=== PATIENT | female | born 1990 | race Caucasian/White ===

== ENCOUNTER 2017-07-01 15:12 | Emergency (ER) | payer MEDICAID ==
--- NOTE | 2017-07-01 16:02 | ER Document Report ---
ED Medical Screen (RME) - General Chief Complaint: Abdominal Pain Stated Complaint: ABDOMINAL PAIN Time Seen by Provider: 07/01/17 15:59 Notes: 26-year-old female patient a few days later., Lower abdominal pain for 3 days some nauseousness and dizziness. She reports she has headaches every morning for the past 1 year. Primary concern is about being late on her period. I have greeted and performed a rapid initial assessment of this patient. A comprehensive ED assessment and evaluation of the patient, analysis of test results and completion of the medical decision making process will be conducted by additional ED providers. TRAVEL OUTSIDE OF THE [place] IN LAST 30 DAYS: No - Related Data Allergies/Adverse Reactions: promethazine HCl [From Phenergan] Adverse Reaction (Verified 07/01/17 15:17) VOMITING Past Medical History - Social History Chew tobacco use (# tins/day): No Frequency of alcohol use: None Drug Abuse: None Renal/ Medical History: Denies: Hx Peritoneal Dialysis - Immunizations Hx Diphtheria, Pertussis, Tetanus Vaccination: No - >5 yrs Physical Exam - Vital signs Vitals: Temp Pulse Resp BP Pulse Ox 98.6 F 97 18 121/82 100 07/01/17 15:15 07/01/17 15:15 07/01/17 15:15 07/01/17 15:15 07/01/17 15:15 Course - Vital Signs Vital signs: Temp Pulse Resp BP Pulse Ox 98.6 F 97 18 121/82 100 07/01/17 15:15 07/01/17 15:15 07/01/17 15:15 07/01/17 15:15 07/01/17 15:15
[2017-07-01 16:34] LABS: ABSOLUTE BASOPHILS # (AUTO) 0.1 10^3/uL (0.0-0.2); ABSOLUTE EOSINOPHILS # (AUTO) 0.2 10^3/uL (0.0-0.6); ABSOLUTE LYMPHOCYTES (AUTO) 2.6 10^3/uL (0.5-4.7); ABSOLUTE MONOCYTES (AUTO) 0.4 10^3/uL (0.1-1.4); BASOPHILS % (AUTO) 0.6 % (0-2); EOSINOPHILS % (AUTO) 2.1 % (0-6); HEMATOCRIT 35.8 % (36.0-47.0); HEMOGLOBIN 12.3 g/dL (12.0-15.5); HGB HCT DIFFERENCE 1.1; LYMPHOCYTES % (AUTO) 31.4 % (13-45); MEAN CORPUSCULAR HEMOGLOBIN 31.4 pg (27.0-33.4); MEAN CORPUSCULAR HGB CONC 34.5 g/dL (32.0-36.0); MEAN CORPUSCULAR VOLUME 91 fl (80-97); MONOCYTES % (AUTO) 4.4 % (3-13); RED BLOOD COUNT 3.93 10^6/uL (3.72-5.28); RED CELL DISTRIBUTION WIDTH 13.2 % (11.5-14.0); SEGMENTED NEUTROPHILS % (AUTO) 61.5 % (42-78); WHITE BLOOD COUNT 8.2 10^3/uL (4.0-10.5)
[2017-07-01 16:41] LABS: APPEARANCE,URINE CLEAR; BILIRUBIN,URINE NEGATIVE (NEGATIVE); GLUCOSE, URINE NEGATIVE (NEGATIVE); KETONES,URINE NEGATIVE (NEGATIVE); LEUKOCYTE ESTERASE,URINE NEGATIVE (NEGATIVE); NITRITE,URINE NEGATIVE (NEGATIVE); PROTEIN,URINE NEGATIVE (NEGATIVE); URINE SPECIFIC GRAVITY 1.003; UROBILINOGEN,URINE NEGATIVE mg/dL (<2.0)
--- NOTE | 2017-07-01 16:59 | ER Document Report ---
ED General - General Chief Complaint: Abdominal Pain Stated Complaint: ABDOMINAL PAIN Time Seen by Provider: 07/01/17 15:59 Mode of Arrival: Ambulatory Information source: Patient Notes: 26-year-old female presents with bilateral pelvic pain of approximately 1 month duration. Patient notes that the pain makes her nauseous. Patient denies any fevers or chills TRAVEL OUTSIDE OF THE [place] IN LAST 30 DAYS: No - HPI Onset: Other Onset/Duration: Intermittent Quality of pain: Sharp Severity: Mild Pain Level: 1 Associated symptoms: Nausea, Other Exacerbated by: Denies Relieved by: Denies Similar symptoms previously: No Recently seen / treated by doctor: No - Related Data Allergies/Adverse Reactions: promethazine HCl [From Phenergan] Adverse Reaction (Verified 07/01/17 15:17) VOMITING Past Medical History - Social History Smoking Status: Current Every Day Smoker Cigarette use (# per day): Yes Chew tobacco use (# tins/day): No Smoking Education Provided: No Frequency of alcohol use: None Drug Abuse: None Family History: None Renal/ Medical History: Denies: Hx Peritoneal Dialysis - Immunizations Hx Diphtheria, Pertussis, Tetanus Vaccination: No - >5 yrs Review of Systems - Review of Systems Notes: REVIEW OF SYSTEMS: CONSTITUTIONAL : Denies fever, chills, or sweats. Denies recent illness. EENT: Denies eye, ear, throat, or mouth pain or symptoms. Denies nasal or sinus congestion or discharge. Denies throat, tongue, or mouth swelling or difficulty swallowing. CARDIOVASCULAR: Denies chest pain. Denies palpitations or racing or irregular heart beat. Denies ankle edema. RESPIRATORY: Denies cough, cold, or chest congestion. Denies shortness of breath, difficulty breathing, or wheezing. GASTROINTESTINAL: Admits to bilateral pelvic pain GENITOURINARY: Denies difficulty urinating, painful urination, burning, frequency, blood in urine, or discharge. FEMALE GENITOURINARY: Denies vaginal bleeding, heavy or abnormal periods, irregular periods. Denies vaginal discharge or odor. MUSCULOSKELETAL: Denies back or neck pain or stiffness. Denies joint pain or swelling. SKIN: Denies rash, lesions or sores. HEMATOLOGIC : Denies easy bruising or bleeding. LYMPHATIC: Denies swollen, enlarged glands. NEUROLOGICAL: Denies confusion or altered mental status. Denies passing out or loss of consciousness. Denies dizziness or lightheadedness. Denies headache. Denies weakness or paralysis or loss of use of either side. Denies problems with gait or speech. Denies sensory loss, numbness, or tingling. Denies seizures. PSYCHIATRIC: Denies anxiety or stress. Denies depression, suicidal ideation, or homicidal ideation. ALL OTHER SYSTEMS REVIEWED AND NEGATIVE. PHYSICAL EXAMINATION: GENERAL: Well-appearing, well-nourished and in no acute distress. HEAD: Atraumatic, normocephalic. EYES: Pupils equal round and reactive to light, extraocular movements intact, conjunctiva are normal. ENT: Nares patent, oropharynx clear without exudates. Moist mucous membranes. NECK: Normal range of motion, supple without lymphadenopathy LUNGS: Breath sounds clear to auscultation bilaterally and equal. No wheezes rales or rhonchi. HEART: Regular rate and rhythm without murmurs ABDOMEN: Soft, nontender, nondistended abdomen. No guarding, no rebound. No masses appreciated. Female : deferred Musculoskeletal: Normal range of motion, no pitting or edema. No cyanosis. NEUROLOGICAL: Cranial nerves grossly intact. Normal speech, normal gait. Normal sensory, motor exams PSYCH: Normal mood, normal affect. SKIN: Warm, Dry, normal turgor, no rashes or lesions noted. Dictation was performed using [email or web address] voice recognition software Physical Exam - Vital signs Vitals: Temp Pulse Resp BP Pulse Ox 98.6 F 97 18 121/82 100 07/01/17 15:15 07/01/17 15:15 07/01/17 15:15 07/01/17 15:15 07/01/17 15:15 Course - Re-evaluation Re-evalutation: 07/01/17 16:58 pt given information for as requested. Patient otherwise appears quite benign 07/01/17 17:04 07/01/17 18:54 Ultrasound notes twins, patient is quite tearful from this she still wishes to continue with having the . Otherwise she looks well is in no distress has no ectopic After performing a Medical Screening Examination, I estimate there is LOW risk for ACUTE APPENDICITIS, BOWEL OBSTRUCTION, ACUTE CHOLECYSTITIS, PERFORATED DIVERTICULITIS, INCARCERATED HERNIA, PANCREATITIS, PELVIC INFLAMMATORY DISEASE, PERFORATED ULCER, ECTOPIC , or TUBO-OVARIAN ABSCESS, thus I consider the discharge disposition reasonable. Also, there is no evidence or peritonitis , sepsis, or toxicity. I have reevaluated this patient multiple times and no significant life threatening changes are noted. The patient and I have discussed the diagnosis and risks, and we agree with discharging home with close follow-up with the understanding that symptoms and presentations can change. We also discussed returning to the Emergency Department immediately if new or worsening symptoms occur. We have discussed the symptoms which are most concerning (e.g., bloody stool, fever, changing or worsening pain, vomiting) that necessitate immediate return. - Vital Signs Vital signs: Temp Pulse Resp BP Pulse Ox 98.6 F 97 18 121/82 100 07/01/17 15:15 07/01/17 15:15 07/01/17 15:15 07/01/17 15:15 07/01/17 15:15 - Laboratory Result Diagrams: 07/01/17 16:05 07/01/17 16:05 Laboratory results interpreted by me: 07/01/17 07/01/17 07/01/17 16:05 16:05 16:05 Hct 35.8 L Carbon Dioxide 21 L Alkaline Phosphatase 33 L Serum HCG, Qual POSITIVE H Beta HCG, Quant 15182.00 H - Diagnostic Test Radiology reviewed: Image reviewed, Reports reviewed - Report given to patient Discharge - Discharge Clinical Impression: Abdominal pain affecting Twin Qualifiers: Multiple gestation type: unspecified Trimester: first trimester Qualified Code( s): O30.001 - Twin , unspecified number of placenta and unspecified number of amniotic sacs, first trimester Condition: Stable Disposition: HOME, SELF-CARE Additional Instructions: Please follow-up with the care plan provided to your return immediately for any other concerns Referrals: AUGUSTA GAILNDO MD [Primary Care Provider] - Follow up tomorrow
[2017-07-01 18:20] LABS: ALANINE AMINOTRANSFERASE 20 U/L (9-52); ALBUMIN 4.1 g/dL (3.5-5.0); ALKALINE PHOSPHATASE 33 U/L (38-126); ANION GAP 12 (5-19); ASPARTATE AMINO TRANSFERASE 17 U/L (14-36); BILIRUBIN,DIRECT 0.4 mg/dL (0.0-0.4); BILIRUBIN,TOTAL 0.6 mg/dL (0.2-1.3); BLOOD UREA NITROGEN 9 mg/dL (7-20); CALCIUM 9.3 mg/dL (8.4-10.2); CARBON DIOXIDE 21 mmol/L (22-30); CHLORIDE 105 mmol/L (98-107); CREATININE RESULT 0.57 mg/dL (0.52-1.25); GLUCOSE 81 mg/dL (75-110); SODIUM 137.7 mmol/L (137-145); TOTAL PROTEIN 6.6 g/dL (6.3-8.2)
--- NOTE | 2017-07-01 18:48 | RADIOLOGY REPORT (SQ) ---
EXAM DESCRIPTION: U/S OB TRANSVAGINAL W/O DOP COMPLETED DATE/TIME: 07/01/2017 6:34 pm REASON FOR STUDY: + preg, pelvic pain COMPARISON: None. TECHNIQUE: Transvaginal static and realtime grayscale images acquired of the pelvis. Additional [place] cted spectral and color Doppler images recorded. All images stored on PACs. [id number] LIMITATIONS: None. FINDINGS: There are 2 gestational sacs within the endometrial canal. The size of sac 1 suggests a g estation of 6 weeks 2 days with estimated date of delivery of 02/22/2018. Sac 2 contains a pole and heart motion is noted. The rate is 101. Estimated gestational age is 5 weeks 6 days with estimated date of delivery of 02/25/2018. A yolk sac is present. UTERUS: No masses. No anomalies. CERVICAL LENGTH: 3 cm Closed. RIGHT ADNEXA: 3.8 x 3.6 x 5.5 cm. 2 cystic areas are present. The larger measures 2.6 x 2.8 x 2.5 c m and the smaller 1 measures 2.5 x 2.1 x 1.2 cm. No adnexal free fluid. No adnexal masses. LEFT ADNEXA: Normal ovary 3.4 x 1.5 x 2 2 cm. No adnexal free fluid. No adnexal masses. FREE FLUID: None. OTHER: No other significant finding. IMPRESSION: There are what appear to be 2 gestational sacs within uterus as described. A pole , yolk sac, and heart beat are seen in 1 of them suggesting a gestation of 5 weeks 6 days with an est imated date of delivery of 02/25/2018. Follow-up as clinically indicated. Trimester of : First - 0 to 13 weeks. TECHNICAL DOCUMENTATION: JOB ID: [id number] [employer]- All Rights Reserved
[2017-07-01 19:06] VITALS: BP 110/72
== END 2017-07-01 19:08 | disposition home or self-care (01) ==
LOC: ER 15:12
DX: O26.891 Other specified pregnancy related conditions, first trimester (principal); R10.2 Pelvic and perineal pain; R11.0 Nausea; O30.001 Twin pregnancy, unspecified number of placenta and unspecified number of amniotic sacs, first trimester; O99.331 Smoking (tobacco) complicating pregnancy, first trimester; F17.210 Nicotine dependence, cigarettes, uncomplicated; Z3A.00 Weeks of gestation of pregnancy not specified
CPT/HCPCS: 36415; 76817; 80053; 81001; 84702; 84703; 85025; 99284

== ENCOUNTER → 2017-09-07 | Outpatient (CLI) | payer SELFPAY ==
--- NOTE | 2017-09-07 16:57 | RADIOLOGY REPORT (SQ) ---
EXAM DESCRIPTION: U/S OB 14+ TRNABD 1GES W/O DOP; U/S [id number] + EACH ADDIT GEST COMPLETED DATE/TIME: 09/07/2017 4:42 pm REASON FOR STUDY: ENCOUNTER FOR SUPERVISION OF OTHER NORMAL , SECOND TRIMESTER Z34.82 ENCO UNTER FOR SUPRVSN OF NORMAL , SECOND TRI COMPARISON: 07/01/2017. TECHNIQUE: Static and Dynamic grayscale imaging performed of gravid uterus using transabdominal appr oach. Additional selected color Doppler and spectral images recorded. All stored on PACS. LIMITATIONS: None. FINDINGS: TWIN A: EGA: 15 week 6 day. ISAÍAS: 02/23/2018. RACHEAL: Adequate amount. PLACENTA: Posterior. PRESENTATION: Variable. ANATOMY: HEART RATE: 169 beats per minute. FOUR CHAMBER HEART: Visualized. THREE VESSEL CORD: Yes. CORD INSERTION: Visualized. KIDNEYS AND BLADDER: Visualized. Appear normal. STOMACH: Visualized. Appears normal. SPINE: Normal as visualized. BRAIN AND LATERAL VENTRICLES: Visualized. Appear normal. OTHER: No other significant finding. TWIN B: EGA: 15 week 6 day. ISAÍAS: 02/23/2018. RACHEAL: Adequate amount. PLACENTA: Anterior. PRESENTATION: Variable. ANATOMY: HEART RATE: 150 beats per minute. FOUR CHAMBER HEART: Visualized. THREE VESSEL CORD: Yes. CORD INSERTION: Visualized. KIDNEYS AND BLADDER: Mild prominence of the right and left renal pelvis. STOMACH: Visualized. Appears normal. SPINE: Normal as visualized. BRAIN AND LATERAL VENTRICLES: Visualized. Appear normal. OTHER: No other significant finding. MATERNAL ADNEXA: Left ovary not visualized. 1.3 cm cyst in the right ovary. CERVICAL LENGTH: Not adequately visualized. OTHER: No other significant finding. IMPRESSION: LIVING TWIN INTRAUTERINE . ESTIMATED GESTATIONAL AGE 15 WEEK 6 DAY. MILD PROMINENCE OF THE RIGHT AND LEFT RENAL PELVIS OF TWIN B. RECOMMEND CONTINUED MONITORING OF THIS FINDING. Trimester of : Second trimester - 13 weeks 1 day to 27 weeks 6 days. TECHNICAL DOCUMENTATION: JOB ID: [id number] [employer]- All Rights Reserved
--- NOTE | 2017-09-07 16:57 | RADIOLOGY REPORT (SQ) ---
EXAM DESCRIPTION: U/S OB 14+ TRNABD 1GES W/O DOP; U/S [id number] + EACH ADDIT GEST COMPLETED DATE/TIME: 09/07/2017 4:42 pm REASON FOR STUDY: ENCOUNTER FOR SUPERVISION OF OTHER NORMAL , SECOND TRIMESTER Z34.82 ENCO UNTER FOR SUPRVSN OF NORMAL , SECOND TRI COMPARISON: 07/01/2017. TECHNIQUE: Static and Dynamic grayscale imaging performed of gravid uterus using transabdominal appr oach. Additional selected color Doppler and spectral images recorded. All stored on PACS. LIMITATIONS: None. FINDINGS: TWIN A: EGA: 15 week 6 day. ISAÍAS: 02/23/2018. RACHEAL: Adequate amount. PLACENTA: Posterior. PRESENTATION: Variable. ANATOMY: HEART RATE: 169 beats per minute. FOUR CHAMBER HEART: Visualized. THREE VESSEL CORD: Yes. CORD INSERTION: Visualized. KIDNEYS AND BLADDER: Visualized. Appear normal. STOMACH: Visualized. Appears normal. SPINE: Normal as visualized. BRAIN AND LATERAL VENTRICLES: Visualized. Appear normal. OTHER: No other significant finding. TWIN B: EGA: 15 week 6 day. ISAÍAS: 02/23/2018. RACHEAL: Adequate amount. PLACENTA: Anterior. PRESENTATION: Variable. ANATOMY: HEART RATE: 150 beats per minute. FOUR CHAMBER HEART: Visualized. THREE VESSEL CORD: Yes. CORD INSERTION: Visualized. KIDNEYS AND BLADDER: Mild prominence of the right and left renal pelvis. STOMACH: Visualized. Appears normal. SPINE: Normal as visualized. BRAIN AND LATERAL VENTRICLES: Visualized. Appear normal. OTHER: No other significant finding. MATERNAL ADNEXA: Left ovary not visualized. 1.3 cm cyst in the right ovary. CERVICAL LENGTH: Not adequately visualized. OTHER: No other significant finding. IMPRESSION: LIVING TWIN INTRAUTERINE . ESTIMATED GESTATIONAL AGE 15 WEEK 6 DAY. MILD PROMINENCE OF THE RIGHT AND LEFT RENAL PELVIS OF TWIN B. RECOMMEND CONTINUED MONITORING OF THIS FINDING. Trimester of : Second trimester - 13 weeks 1 day to 27 weeks 6 days. TECHNICAL DOCUMENTATION: JOB ID: [id number] [employer]- All Rights Reserved
== END ==
LOC: RAD 14:55
PROVIDERS: ATTEND Nurse Practitioner Women's Health
DX: Z34.82 Encounter for supervision of other normal pregnancy, second trimester (principal)
CPT/HCPCS: 76805; 76810

== ENCOUNTER 2018-01-11 16:58 | Outpatient (CLI) | payer MEDICAID ==
--- NOTE | 2018-01-11 17:45 | Non Stress Test Report ---
Non Stress Test Datetime Report Generated by CPN: 01/11/2018 17:45 DEMOGRAPHIC EGA NST: 33.5 INDICATION Indication for Study: Ordered by Provider Indication for Study (NST) Other: repeat NST from the office MONITORING Monitor Explained: Monitor Explained; Test Explained; Patient Verbalized Understanding Time on Monitor: 01/11/2018 17:08 Time off Monitor: 01/11/2018 17:44 NST Duration: 36 NST INTERVENTIONS NST Interventions: None BABY A: [id number] BABY A Movement : Present Accelerations : 15X15 Decelerations : Variable Variability : Moderate 6-25bpm NST Review: Meets Criteria for Reactive NST NST Review and Verified By : Hayley Camp RNC NST Results: Reactive BABY B Movement: Present FHR Baseline: 140 Accelerations: 15X15 Decelerations: Variable Variability: Moderate 6-25bpm NST Review: Meets Criteria for Reactive NST NST Reviewed And Verified By: Hayley Camp RNC NST Results: Reactive NST REPORT Report Trigger: Send Report
== END 2018-01-11 17:47 | disposition home or self-care (01) ==
LOC: LC 16:58
PROVIDERS: ATTEND Obstetrics & Gynecology Gynecology
PROC: 4A1HXCZ Monitoring of Products of Conception, Cardiac Rate, External Approach (ICD-10-PCS; principal; 2018-01-11)
DX: O30.003 Twin pregnancy, unspecified number of placenta and unspecified number of amniotic sacs, third trimester (principal); O36.8330 Maternal care for abnormalities of the fetal heart rate or rhythm, third trimester, not applicable or unspecified; Z3A.33 33 weeks gestation of pregnancy
CPT/HCPCS: 59025

== ENCOUNTER 2018-01-25 06:17 | Inpatient (IN) | payer MEDICAID ==
[2018-01-25] MEDS ORDERED: PENICILLIN G-K 5 MILLION UNIT VIAL ONE ×2 (07:19→10:52)
[2018-01-25] MEDS ORDERED: OXYTOCIN/NORMAL SALINE 20 UNIT/1,000 ML RTUINJ ONE (07:19)
[2018-01-25 07:23] LABS: ABSOLUTE EOSINOPHILS # (AUTO) 0.4 10^3/uL (0.0-0.6); ABSOLUTE LYMPHOCYTES (AUTO) 2.2 10^3/uL (0.5-4.7); ABSOLUTE MONOCYTES (AUTO) 0.6 10^3/uL (0.1-1.4); ABSOLUTE NEUT (AUTO) 5.8 10^3/uL (1.7-8.2); BASOPHILS % (AUTO) 0.3 % (0-2); HEMOGLOBIN 10.7 g/dL (12.0-15.5); MEAN CORPUSCULAR HGB CONC 34.4 g/dL (32.0-36.0); MEAN CORPUSCULAR VOLUME 87 fl (80-97); MONOCYTES % (AUTO) 6.3 % (3-13); PLATELET COUNT 266 10^3/uL (150-450); RED BLOOD COUNT 3.56 10^6/uL (3.72-5.28); RED CELL DISTRIBUTION WIDTH 12.7 % (11.5-14.0); SEGMENTED NEUTROPHILS % (AUTO) 64.4 % (42-78); TOTAL CELLS COUNTED % (AUTO) 100 %
[2018-01-25] MEDS ORDERED: RINGERS SOLUTION,LACTATED 1,000 ML IV PRN (07:32)
[2018-01-25] MEDS ORDERED: RINGERS SOLUTION,LACTATED 300 ML IV ONE (07:32)
[2018-01-25] MEDS ORDERED: OXYTOCIN/NORMAL SALINE 20 UNIT/1,000 ML RTUINJ IV PRN ×2 (07:32→13:26)
[2018-01-25 08:26] LABS: APPEARANCE,URINE SLIGHTLY-CLOUDY; BILIRUBIN,URINE NEGATIVE (NEGATIVE); COLOR,URINE YELLOW; GLUCOSE, URINE NEGATIVE (NEGATIVE); KETONES,URINE NEGATIVE (NEGATIVE); LEUKOCYTE ESTERASE,URINE SMALL (NEGATIVE); NITRITE,URINE NEGATIVE (NEGATIVE); PROTEIN,URINE NEGATIVE (NEGATIVE); URINE SPECIFIC GRAVITY 1.011; UROBILINOGEN,URINE NEGATIVE mg/dL (<2.0)
[2018-01-25 08:43] LABS: URINE AMPHETAMINES SCREEN NEGATIVE; URINE BARBITURATES SCREEN NEGATIVE; URINE BENZODIAZEPINES SCREEN NEGATIVE; URINE COCAINE SCREEN NEGATIVE; URINE MARIJUANA (THC) SCREEN NEGATIVE; URINE METHADONE SCREEN NEGATIVE; URINE PHENCYCLIDINE SCREEN NEGATIVE
--- NOTE | 2018-01-25 08:56 | Admission Physical ---
Datetime Report Generated by CPN: 01/25/2018 08:55 CURRENT ADMISSION Hx Assessment: The History has been Reviewed and is Current Chief Complaint: Scheduled Induction of Labor Indication for Induction- Other: Twins, maternal isoimmunization Admit Impression : , Intrauterine ; No Active Labor; Intact Membranes; Induction of Labor Admit Plan: Admit to Unit; Initiate Labor Induction Protocol ALLERGIES Medication Allergies: No Medication Allergies: No Known Allergies (01/25/2018) Latex: No Latex Allergies OBSTETRICAL HISTORY EDC: 02/23/2018 00:00 : 4 Para: 3 Term: 1 : 2 SAB: 0 IAB: 0 Ectopic: 0 Livin Cesareans: 0 VBACs: 0 Multiple Births: 0 Gestational Diabetes: No Rh Sensitization: No Incompetent Cervix: No VANESSA: No Infertility: No ART Treatment: No Uterine Anomaly: No IUGR: No Hx Previous C/S: No Macrosomia: No Hx Loss/Stillborn: No PIH: No Hx : No Placenta Previa/Abruption: No Depression/PP Depression: Yes PTL/PROM: No Post Hemorrhage: No Current Procedures: Ultrasound; NST Obstetrical History Comments: 01/2010 36 weeks baby boy 6lbs 5oz PROM 04/2012 36 weeks baby girl 6lbs 15oz IOL for RH factor 04/2016 37 weeks baby boy 6lbs 5oz G4- current with dichorionic diamniotic twins SEE RECORDS Alcohol: No Marijuana : No Cocaine: No Other Illicit Drugs: No Cigarettes: Former Smoker. [id number] Cigarette Comments: Quit in November MEDICAL HISTORY Diabetes: No Blood Transfusion: No Pulmonary Disease (Asthma, TB): No Breast Disease: No Hypertension: No Tobacco Sprayer Surgery: No Heart Disease: No Hosp/Surgery: Yes Autoimmune Disorder: No Anesthetic Complications: No Kidney Disease: No Abnormal Pap Smear: No Neuro/Epilepsy: No Psychiatric Disorders: No Other Medical Diseases: No Hepatitis/Liver Disease: No Significant Family History: No Varicosities/Phlebitis: No Trauma/Violence : No Thyroid Dysfunction: No Medical History Comments: Childbirth; PPD-no meds; INFECTIOUS HISTORY Gonorrhea: No Genital Herpes: No Chlamydia: Yes Tuberculosis: No Syphilis: No Hepatitis: No HIV/AIDS Exposure: No Rash or Viral Illness: No HPV: No Infectious History Comments: hx of chlamydia and , TERRY??? PHYSICAL EXAM General: Normal HEENT: Normal Neurologic: Normal Thyroid: Deferred Heart: Normal Lungs: Normal Breast: Normal Back: Normal Abdomen: Normal Genitourinary Exam: Normal Extremities: Normal DTRs: Normal Pelvic Type: Adequate Vital Signs: Reviewed VAGINAL EXAM Dilatation: 3 Effacement: 50 Station: -3 Contraction Comments: rare MEMBRANES Membranes: Intact FETUS A EGA: 35.6 Monitoring: External US FHR- Baseline: 140 Variability: Moderate 6-25bpm Accelerations: 15X15 Decelerations: None FHR Category: Category I Presentation: Vertex Admit Comment: MFM recommended iol @ 36 w d/t maternal isoimmunization, twins, di-di efw: 5-13, and 5-3 vertex/vertex gbs unknown, pcn pitocin PLANS FOR LABOR AND DELIVERY Labor and Delivery: None Pain Management: Epidural Feeding Preference: Both Benefit of Breast Feed Discussed: Yes Circumcision: No INFORMED CONSENT Assignment: Patricia Jackson MD Signature: with User ID: [email or web address] : with User ID: [email or web address]
[2018-01-25] MEDS ORDERED: NORMAL SALINE 250 ML IV PRN (08:58)
[2018-01-25] MEDS ORDERED: MAG HYDROX/AL HYDROX/SIMETH SUSP 30 ML UDCUP ONE ×2 (09:00→09:07)
[2018-01-25] MEDS ORDERED: MAG HYDROX/AL HYDROX/SIMETH SUSP 30 ML UDCUP PO ONE (09:04)
[2018-01-25] MEDS ORDERED: EPHEDRINE SULFATE INJ 50 MG/1 ML AMPULE ONE (10:30)
--- NOTE | 2018-01-25 10:30 | L&D Progress Notes ---
PROGRESS NOTES Datetime Report Generated by CPN: 01/25/2018 10:30 PROGRESS NOTE Impression: Normal Progression of Labor Procedures: Artificial ROM; Scalp Electrode; Sterile Vag Exam Plan: Continue Present Management; Induction Informed Consent Obtained: Vaginal Delivery; Induction of Labor; Risks, Benefits and Alternatives Discussed Vital Signs : Reviewed; Within Normal Limits Comment: Unable to trace Baby A. IOL due to Increased antibody titer. Recommended by Dr. Salinas with MFM. Since unable to trace baby A - AROM performed and FSE placed. CLear fluid noted. Pt desires epidural. Reviewed again plan to deliver in OR. CAT I for baby A and B now with FSE placed. VAGINAL EXAM Dilatation: 5 Dilatation: 3 Effacement: 75 Effacement: 50 Station: -1 Station: -3 Contractions: q 2-3 Contractions: rare MEMBRANES Membranes: Ruptured Membranes: Intact Amniotic Fluid Color: Clear FETUS A FHR - Baseline: 130 Monitoring: External US Variability: Moderate 6-25bpm Accelerations: 15X15 Decelerations: None FHR Category: Category I Estimated Weight (gm): 2644 Presentation: Vertex FETUS B FHR - Baseline: 130 Monitoring: External US Variability: Moderate 6-25bpm Accelerations: 15X15 Decelerations: None FHR Category: Category I Estimated Weight (gm): 2356 Presentation: Vertex SIGNATURE SIGNATURE: [id number];14,[id number];13,[id number] SIGNATURE: [id number];14,[id number] SIGNATURE: [id number] Signature: with User ID: [email or web address]
[2018-01-25] MEDS ORDERED: BUPIVACAINE HCL 0.25 % INJ/PF (2.5 MG/1 ML) 30 ML VIAL ONE (10:31)
[2018-01-25] MEDS ORDERED: FENTANYL/BUPIVACAINE/NS/PF 200 MCG/100 ML RTUINJ EPI ONE (10:31)
[2018-01-25] MEDS ORDERED: MISOPROSTOL 0.2 MG TABLET ONE (10:31)
[2018-01-25 11:08] LABS: CHLAM PCR NOT DETECTED (NOT DETECT); GON PCR NOT DETECTED (NOT DETECT)
[2018-01-25] MEDS ORDERED: DIPH/PERTUSS(ACELL)/TETANUS VAC/PF 0.5 ML SYR (>=10YO) IM PRN (13:26)
[2018-01-25] MEDS ORDERED: PSEUDOEPHEDRINE HCL 30 MG TABLET PO PRN (13:26)
[2018-01-25] MEDS ORDERED: BENZOCAINE/MENTHOL AEROSOL SPRAY 56 ML TOP PRN (13:26)
[2018-01-25] MEDS ORDERED: NA PHOS,M-B/NA PHOS,DI-BA (ADULT) 133 ML ENEMA PR PRN (13:26)
[2018-01-25] MEDS ORDERED: PROMETHAZINE HCL 25 MG SUPP.RECT PR PRN (13:26)
[2018-01-25] MEDS ORDERED: MAGNESIUM HYDROXIDE SUSP 30 ML UDCUP PO PRN (13:26)
[2018-01-25] MEDS ORDERED: DIPHENHYDRAMINE HCL 25 MG CAPSULE PO PRN (13:26)
[2018-01-25] MEDS ORDERED: ACETAMINOPHEN WITH CODEINE #3 TABLET PO PRN (13:26)
[2018-01-25] MEDS ORDERED: GLYCERIN/WITCH HAZEL LEAF 1 EACH MED..PAD TP PRN (13:26)
[2018-01-25] MEDS ORDERED: DIBUCAINE 1% OINTMENT 28 GM TP PRN (13:26)
[2018-01-25] MEDS ORDERED: PROMETHAZINE HCL 25 MG TABLET PO PRN (13:26)
[2018-01-25] MEDS ORDERED: PROMETHAZINE HCL INJ 25 MG/1 ML VIAL IV PRN (13:26)
[2018-01-25] MEDS ORDERED: MEASLES,MUMPS&RUBELLA VACC/PF 0.5 ML VIAL SUBCUT PRN (13:26)
[2018-01-25] MEDS ORDERED: ACETAMINOPHEN 325 MG TABLET PO PRN (13:26)
[2018-01-25] MEDS ORDERED: MISOPROSTOL 0.2 MG TABLET PR ONE (13:30)
[2018-01-25] MEDS: FERROUS SULFATE 325 MG TABLET PO SCH (17:21)
[2018-01-25] MEDS: ACETAMINOPHEN WITH CODEINE #3 TABLET PO PRN (17:22)
[2018-01-25] MEDS: DOCUSATE SODIUM 100 MG CAPSULE PO SCH (17:23)
--- NOTE | 2018-01-25 18:38 | Delivery Summary ---
Del Sum A-C Datetime Report Generated by CPN: 01/25/2018 18:38 DELIVERY PERSONNEL DELIVERY PERSONNEL: [id number] Delivery Doctor:: Patricia Jackson MD Labor and Delivery Nurse:: RICKY Mohan Labor and Delivery Nurse:: RICKY Rogers Nursery Nurse:: Soniya Redding RN Nursery Nurse:: Sue Johnson RN Window Shade Installer/UNIT MANAGER: Elizabeth Neri, ST Window Shade Installer/UNIT MANAGER: Mendy Sheppard, POCKET BUILDER MATERNAL INFORMATION Delivery Anesthesia: Epidural Meds After Delivery Comment: Pitocin 20 Units/1000 ml NS bolus, 1000 mcg VT Estimated Blood Loss (ml): 600 Maternal Complications: Other Provider Comments: Called due to patient feeling increased pressure to push. DC/DA TIUP vertex/vertex with baby A larger than baby B. Reviewed risks of vaginal delivery of TIUP with patient prior to IOL scheduled. Pt is comfortable with epidural. Cvx noted to be c/c/+3. Anesthesia and NICU team notified of imminent delivery of twins and that we were heading to the Operating room for delivery. Upon arrival to the Operating Room patient was moved to the OR table and positioned and placed in stirrups. Cervix re-evaluated and patient feeling need to push. Baby A delivered expeditiously at 1224 with only 2 pushes. Loose nuchal cord noted. Shoulders and body delivered without difficulty. Cord doubly clamped and cut and infant to maternal Abdomen due to NICU not present. NICU and ANesthesia notified again. Apgars for Baby A 7/9. One clamp placed on Baby As cord and cord blood obtained. Baby B was assessed and felt to be cephalic but malpositioned and not well applied to cervix therefore head positioned properly for delivery and AROM performed for baby B at 1226. Repeat assesment of Baby B noted to be now compound presentaiton with head and one (left) foot. On palpation noted loop of baby B cord in vagina and unable to reduce cord back into uterus. Patient asked to push after foot was pushed back into uterus and poor descent. At this time NICU and Anesthesia notified again. Baby B's head was easily disengaged and then delivered from breech presentation due to need for expeditious delivery secondary to cord prolapse. Patient only pushed 2-3 times and easily delivered baby B from breech presentation at 1231. Baby B was initially with poor tone and no cry and poor color and cord was doubly clamped and cut and infant to NICU and was quickly recussitated. No perineal lacerations. Good uterine tone. FF at U and good hemostasis. Cytotec 1000mcg given per rectum. Babys father taken to NICU to see Baby B and Baby B crying and doing well. Baby B Apgars 1/9 (PIERCE AND SHAVE PRESS OPERATOR not present for assesment). Baby B capillary gases wnl. pH 7.15 BE -8 LABOR SUMMARY EDC: 02/23/2018 00:00 No. Babies in Womb: 2 Attempted: No Labor Anesthesia: Epidural LABOR INFORMATION Reason for Induction: Indicated by Testing Reason for Induction- Other: MFM recommended delivery Onset of Labor: 01/25/2018 10:01 Complete Dilatation: 01/25/2018 12:10 Other Ripening Agents: NA Oxytocin: Induction Group B Beta Strep: unknown Antibiotics # of Doses: 2 Antibiotics Time of Last Dose: Name of Antibiotic Given: PCN Steroids Given: None Reason Steroids Not Administered: Not Applicable MEMBRANES Membranes Rupture Method: Artificial Rupture of Membranes: 01/25/2018 10:01 Length of Rupture (hr): 2.38 Amniotic Fluid Color: Clear Amniotic Fluid Amount: Small STAGES OF LABOR Stage 1 hr: 2 Stage 1 min: 9 Stage 2 hr: 0 Stage 2 min: 14 Stage 3 hr: 0 Stage 3 min: 12 Total Time in Labor hr: 2 Total Time in Labor min: 35 VAGINAL DELIVERY Episiotomy: None Laceration #1: None Laceration Extension #1: N/A Laceration Repair: Not Applicable Sponge Count Correct: Yes Sharps Count Correct: Yes CSECTION DELIVERY Primary Indication: N/A Secondary Indication: N/A CSection Incidence: N/A Labor: N/A Elective: N/A CSection Incision: N/A BABY A INFORMATION Delivery Date/Time: 01/25/2018 12:24 Method of Delivery: Vaginal Born in Route : No : N/A Forceps: N/A Vacuum Extraction: N/A Shoulder Dystocia : No PRESENTATION/POSITION BABY A Presentation: Cephalic Cephalic Presentation: Vertex Vertex Position: Right Occipital Anterior Breech Presentation: N/A PLACENTA INFORMATION BABY A Placenta Delivery Time : 01/25/2018 12:36 Placenta Method of Delivery: Spontaneous Placenta Status: Delivered SCORES BABY A Heart Rate 1 min: >100 bpm Resp Effort 1 min: Good Cry Reflex Irritability 1 min: Cough or Sneeze or Pulls Away Muscle Tone 1 min: Some Flexion of Extremities Color 1 min: Blue/Pale Resuscitation Effort 1 min: Tactile Stimulation SCORE 1 MIN: 7 Heart Rate 5 min: >100 bpm Resp Effort 5 min: Good Cry Reflex Irritability 5 min: Cough or Sneeze or Pulls Away Muscle Tone 5 min: Active Motion Color 5 min: Body [place], Extremities Blue Resuscitation Effort 5 min: N/A SCORE 5 MIN: 9 Resuscitation Effort 10 min: N/A INFORMATION BABY A Gestational Age at Delivery: 35.6 Gestational Status: Late - 34- 36.6 Weeks Outcome : Liveborn Condition : Stable Sex: Male IDENTIFICATION BABY A Infant Verification Date/Time: 01/25/2018 13:51 ID Band Number: [id number] Mother's Name Verified: Yes RN Verifying : A Mcgee RN M Silver RN WEIGHT/LENGTH BABY A Birthweight (gm): 2670 Infant Weight (lb): 5 Weight (oz): 14 Length (in): 19.25 Length (cm): 48.90 CORD INFORMATION BABY A No. Cord Vessels: 3 Nuchal Cord : Around Neck x1, Loose Cord Blood Taken: Yes-For Eval (Mom's Blood Type - or O+) Suction: Mouth; Nose ASSESSMENT BABY A Infant Complications: None Physical Findings at Delivery: Within Normal Limits Respirations: Appears Normal Skin to Skin: Yes Sap Portal Architect/ALS Called : Yes Infant Care By: D Bellavance RNC Transferred To: NICU BABY B INFORMATION Infant Delivery Date/Time: 01/25/2018 12:31 Method of Delivery : Vaginal Born in Route : No : N/A Forceps : N/A Vacuum Extraction: N/A Shoulder Dystocia : No SHOULDER DYSTOCIA BABY B Infant Delivery Date/Time: 01/25/2018 12:31 PRESENTATION/POSITION BABY B Presentation : Breech Cephalic Position : N/A Breech Position: Double Footling ROM/PLACENTA INFO BABY B Rupture of Membranes: 01/25/2018 12:26 Length of Rupture (hr): 0.08 Placenta Delivery Time : 01/25/2018 12:36 Placenta Method of Delivery: Spontaneous Placental Status : Delivered SCORES BABY B Heart Rate 1 min: Slow, Below 100 bpm Resp Effort 1 min: Absent Reflex Irritability 1 min: No Response Muscle Tone 1 min: Flaccid Color 1 min: Blue/Pale Resuscitation Effort 1 min: Tactile Stimulation; Oxygen; PPV/NCPAP SCORE 1 MIN: 1 Heart Rate 5 min: >100 bpm Resp Effort 5 min: Good Cry Reflex Irritability 5 min: Cough or Sneeze or Pulls Away Muscle Tone 5 min: Active Motion Color 5 min: Body [place], Extremities Blue Resuscitation Effort 5 min: Oxygen SCORE 5 MIN: 9 INFANT INFORMATION BABY B Gestational Age at Delivery: 35.6 Gestational Status : Late - 34- 36.6 Weeks Infant Outcome : Liveborn Infant Condition : Stable Infant Sex : Male IDENTIFICATION BABY B Infant Verification Date/Time: 01/25/2018 13:52 ID Band Number : [id number] Mother's Name Verified: Yes RN Verifying Infant: Georgia Mcgee ERAN Miriam Silver RN WEIGHT/LENGTH BABY B Birthweight (gm): 2460 Weight (lb) : 5 Infant Weight (oz): 7 Infant Length (in): 19.25 Length (cm): 48.90 CORD INFORMATION BABY B No. Cord Vessels : 3 Nuchal Cord : N/A Cord Blood Taken : Yes-For Eval (Mom's Blood Type -) Infant Suction : Mouth; Nose ASSESSMENT BABY B Skin to Skin: No Sap Portal Architect/ALS Called : Yes Transfer To: NICU SIGNATURES Signature: with User ID: [email or web address]
[2018-01-25] MEDS: IBUPROFEN 800 MG TABLET PO SCH (21:19)
[2018-01-25] MEDS: FAMOTIDINE 20 MG TABLET PO SCH (21:20)
[2018-01-25] MEDS ORDERED: ZOLPIDEM TARTRATE 5 MG TABLET PO PRN (22:00)
[2018-01-26] MEDS: IBUPROFEN 800 MG TABLET PO SCH ×3 (05:42→21:21)
[2018-01-26 07:06] LABS: HEMATOCRIT 31.2 % (36.0-47.0); HEMOGLOBIN 10.7 g/dL (12.0-15.5); MEAN CORPUSCULAR HEMOGLOBIN 29.9 pg (27.0-33.4); MEAN CORPUSCULAR HGB CONC 34.3 g/dL (32.0-36.0); MEAN CORPUSCULAR VOLUME 87 fl (80-97); PLATELET COUNT 205 10^3/uL (150-450); RED BLOOD COUNT 3.57 10^6/uL (3.72-5.28); RED CELL DISTRIBUTION WIDTH 12.8 % (11.5-14.0); WHITE BLOOD COUNT 11.1 10^3/uL (4.0-10.5)
--- NOTE | 2018-01-26 09:08 | PDOC PROGRESS REPORT ---
Subjective-OB Progress Note for:: 01/26/18 Physical Exam (OB) Vital Signs: Temp Pulse Resp BP Pulse Ox 97.5 F 67 15 124/82 100 01/26/18 07:42 01/26/18 07:42 01/26/18 07:42 01/26/18 07:42 01/26/18 07:42 Intake & Output 01/25/18 01/26/18 01/27/18 06:59 06:59 06:59 Weight 80.9 kg - PIH/Pre-Eclampsia DTR's: 2 + Clonus: Negative Headache: Absent Epigastric Pain: No Visual Changes: No - Lochia Lochia Amount: Scant < 10 ml Lochia Color: Rubra/Red - Abdomen Description: Round Hernia Present: No Bowel Sounds: Normoactive Flatus Presence: Present Stool: No Fundal Description: Firm, Midline Fundal Height: u/u - u/2 Objective-Diagnostic Laboratory: 01/26/18 06:49 01/25/18 01/26/18 06:56 06:49 WBC 11.1 H RBC 3.57 L Hgb 10.7 L Hct 31.2 L MCV 87 MCH 29.9 MCHC 34.3 RDW 12.8 Plt Count 205 Blood Type A NEGATIVE Antibody Screen POSITIVE
[2018-01-26] MEDS: DOCUSATE SODIUM 100 MG CAPSULE PO SCH ×2 (09:35→18:18)
[2018-01-26] MEDS: FERROUS SULFATE 325 MG TABLET PO SCH ×2 (09:35→18:18)
[2018-01-26] MEDS: SENNOSIDES/DOCUSATE 8.6-50 MG 1 EACH TABLET PO SCH (09:35)
[2018-01-26] MEDS: PRENATAL VITAMIN W DHA CAPSULE PO SCH (09:35)
[2018-01-26] MEDS: FAMOTIDINE 20 MG TABLET PO SCH ×2 (09:38→21:21)
[2018-01-26] MEDS: ACETAMINOPHEN WITH CODEINE #3 TABLET PO PRN (14:13)
[2018-01-27] MEDS: IBUPROFEN 800 MG TABLET PO SCH ×3 (05:30→21:16)
[2018-01-27] MEDS: ACETAMINOPHEN WITH CODEINE #3 TABLET PO PRN ×2 (08:26→18:31)
--- NOTE | 2018-01-27 08:55 | PDOC PROGRESS REPORT ---
Subjective-OB Progress Note for:: 01/27/18 Subjective: Doing well, babies not going today, eating well, voiding, ambulating Physical Exam (OB) Vital Signs: Temp Pulse Resp BP Pulse Ox 98.1 F 64 18 114/67 99 01/27/18 08:21 01/27/18 08:21 01/27/18 08:21 01/27/18 08:21 01/27/18 08:21 Intake & Output 01/26/18 01/27/18 01/28/18 06:59 06:59 06:59 Intake Total 300 Balance 300 Weight 80.9 kg - PIH/Pre-Eclampsia DTR's: 2 + Clonus: Negative Headache: Absent Epigastric Pain: No Visual Changes: No - Lochia Lochia Amount: Scant < 10 ml Lochia Color: Rubra/Red - Abdomen Description: Round Hernia Present: No Fundal Description: Firm, Midline Fundal Height: u/u - u/2 Objective-Diagnostic Laboratory: 01/26/18 06:49 01/26/18 06:49 Blood Type A NEGATIVE Assessment and Plan(PN) - Assessment and Plan (1) delivery Is this a current diagnosis for this admission?: Yes (2) Twin , delivered vaginally, current hospitalization Is this a current diagnosis for this admission?: Yes (3) History of rhesus isoimmunization Is this a current diagnosis for this admission?: Yes - Time Spent with Patient Time with patient: Less than 15 minutes Medications reviewed and adjusted accordingly: Yes - Disposition Anticipated Discharge: Home Within: within 24 hours
[2018-01-27] MEDS: FAMOTIDINE 20 MG TABLET PO SCH ×2 (10:38→21:16)
[2018-01-27] MEDS: PRENATAL VITAMIN W DHA CAPSULE PO SCH (10:38)
[2018-01-27] MEDS: SENNOSIDES/DOCUSATE 8.6-50 MG 1 EACH TABLET PO SCH (10:38)
[2018-01-27] MEDS: DOCUSATE SODIUM 100 MG CAPSULE PO SCH ×2 (10:38→18:29)
[2018-01-27] MEDS: FERROUS SULFATE 325 MG TABLET PO SCH ×2 (10:38→18:29)
[2018-01-28] MEDS: IBUPROFEN 800 MG TABLET PO SCH (06:46)
--- NOTE | 2018-01-28 09:03 | PDOC PROGRESS REPORT ---
Subjective-OB Progress Note for:: 01/28/18 Subjective: Sitting up in bed, not sure when babies are going home, voiding, , eating well, scant bleeding Physical Exam (OB) Vital Signs: Temp Pulse Resp BP Pulse Ox 98.0 F 59 L 16 130/68 H 100 01/28/18 07:30 01/28/18 07:30 01/28/18 07:30 01/28/18 07:30 01/28/18 07:30 Intake & Output 01/27/18 01/28/18 01/29/18 06:59 06:59 06:59 Intake Total 300 Balance 300 - PIH/Pre-Eclampsia DTR's: 1 + Clonus: Negative Headache: Absent Epigastric Pain: No Visual Changes: No - Lochia Lochia Amount: Scant < 10 ml Lochia Color: Rubra/Red - Abdomen Description: Tender, Soft, Round Hernia Present: No Fundal Description: Firm, Midline Fundal Height: u/u - u/2 Objective-Diagnostic Laboratory: 01/26/18 06:49 Assessment and Plan(PN) - Assessment and Plan (1) delivery Is this a current diagnosis for this admission?: Yes (2) Twin , delivered vaginally, current hospitalization Is this a current diagnosis for this admission?: Yes (3) History of rhesus isoimmunization Is this a current diagnosis for this admission?: Yes - Time Spent with Patient Time with patient: Less than 15 minutes Medications reviewed and adjusted accordingly: Yes - Disposition Anticipated Discharge: Home Within: Other - home today
[2018-01-28] MEDS: PRENATAL VITAMIN W DHA CAPSULE PO SCH (09:07)
[2018-01-28] MEDS: FAMOTIDINE 20 MG TABLET PO SCH (09:07)
[2018-01-28] MEDS: ACETAMINOPHEN WITH CODEINE #3 TABLET PO PRN (09:08)
[2018-01-28] MEDS: SENNOSIDES/DOCUSATE 8.6-50 MG 1 EACH TABLET PO SCH (09:08)
[2018-01-28] MEDS: DOCUSATE SODIUM 100 MG CAPSULE PO SCH (09:08)
[2018-01-28] MEDS: FERROUS SULFATE 325 MG TABLET PO SCH (09:08)
--- NOTE | 2018-01-28 09:10 | PDOC DISCHARGE SUMMARY ---
Final Diagnosis Discharge Date: 01/28/18 - Final Diagnosis (1) delivery Is this a current diagnosis for this admission?: Yes (2) Twin , delivered vaginally, current hospitalization Is this a current diagnosis for this admission?: Yes (3) History of rhesus isoimmunization Is this a current diagnosis for this admission?: Yes Discharge Data - Discharge Medication Home Medications: Vit/Iron Fum/Folic AC [ Tablet] 1 tab PO DAILY 04/13/16 Gestational Age: 35.6 Reason(s) for Admission: Induction of Labor, Other - twins Admission Note: twins Procedures: NST, Ultrasound Intrapartum Procedure(s): Spontaneous Vaginal Delivery - [place] Data Baby 1 Weight: 2.665 kg Home with Mother: No Complications: Yes Baby 2 Male Weight: 2.466 kg Home with Mother: No Complications: Yes - NICU, - Diagnosis Test Laboratory: Temp Pulse Resp BP Pulse Ox 98.0 F 59 L 16 130/68 H 100 01/28/18 07:30 01/28/18 07:30 01/28/18 07:30 01/28/18 07:30 01/28/18 07:30 01/25/18 01/25/18 01/26/18 06:26 06:56 06:49 RBC 3.56 L 3.57 L Hgb 10.7 L 10.7 L Hct 31.0 L 31.2 L Urine Opiates Screen NEGATIVE - Discharge information/Instructions Discharge Activity: Activity As Tolerated, No Lifting Over 10 Pounds, No Lifting /Push/Pulling, Pelvic Rest Discharge Diet: As Tolerated, Regular Disposition: HOME, SELF-CARE Follow up with: [facility] in: 4, Weeks
[2018-01-28 09:52] VITALS: BP 114/67
== END 2018-01-28 11:05 | disposition home or self-care (01) | DRG 775 ==
LOC: LR 06:17 → 2N 16:26
PROVIDERS: ADMIT Student in an Organized Health Care Education/Training Program; ATTEND Student in an Organized Health Care Education/Training Program
PROC: 10D07Z8 Extraction of Products of Conception, Other, Via Natural or Artificial Opening (ICD-10-PCS; principal; 2018-01-25)
PROC: 10E0XZZ Delivery of Products of Conception, External Approach (ICD-10-PCS; 2018-01-25)
PROC: 3E0234Z Introduction of Serum, Toxoid and Vaccine into Muscle, Percutaneous Approach (ICD-10-PCS; 2018-01-26)
DX: O32.1XX2 Maternal care for breech presentation, fetus 2 (principal); O60.14X0 Preterm labor third trimester with preterm delivery third trimester, not applicable or unspecified; O69.81X0 Labor and delivery complicated by cord around neck, without compression, not applicable or unspecified; O30.043 Twin pregnancy, dichorionic/diamniotic, third trimester; O26.893 Other specified pregnancy related conditions, third trimester; Z37.2 Twins, both liveborn; Z67.91 Unspecified blood type, Rh negative; Z3A.35 35 weeks gestation of pregnancy; Z87.891 Personal history of nicotine dependence
CPT/HCPCS: 36415; 80307; 81005; 85025; 85027; 85461; 86592; 86850; 86870; 86900; 86901; 86920; 86922; 87491; 87591; 88307; J2540; J2590; J2790; J3490

== ENCOUNTER 2020-10-10 18:50 | Emergency (ER) | payer SELFPAY ==
[2020-10-10] MEDS ORDERED: RINGERS SOLUTION,LACTATED 1,640 ML IV ONE (19:47)
--- NOTE | 2020-10-10 19:52 | ER Document Report ---
ED Medical Screen (RME) - General Stated Complaint: FEVER CHILLS HEADACHE Time Seen by Provider: 10/10/20 19:44 Primary Care Provider: WM DANGELO MD [Primary Care Provider] - Follow up as needed Notes: pt presents with cough, nausea, fever and shortness of breath for the pas 5 days. Pt denies any vomiting or diarrhea. Pt denies any urinary symptoms. I have greeted and performed a rapid initial assessment of this patient. A comprehensive ED assessment and evaluation of the patient, analysis of test results and completion of the medical decision making process will be conducted by additional ED providers. TRAVEL OUTSIDE OF THE [place] IN LAST 30 DAYS: No - Related Data Allergies/Adverse Reactions: No Known Allergies Allergy (Verified 01/25/18 07:18) Past Medical History Renal/ Medical History: Denies: Hx Peritoneal Dialysis - Immunizations Hx Diphtheria, Pertussis, Tetanus Vaccination: No - >5 yrs Physical Exam - Vital signs Vitals: Temp Pulse Resp BP Pulse Ox 102.9 F H 116 H 19 126/62 H 100 10/10/20 19:24 10/10/20 19:24 10/10/20 19:24 10/10/20 19:24 10/10/20 19:24 - Respiratory Respiratory status: No respiratory distress Breath sounds: Nonproductive cough, Productive cough, Wheezing Course - Vital Signs Vital signs: Temp Pulse Resp BP Pulse Ox 102.9 F H 116 H 19 126/62 H 100 10/10/20 19:24 10/10/20 19:24 10/10/20 19:24 10/10/20 19:24 10/10/20 19:24 Doctor's Discharge - Discharge Referrals: WM DANGELO MD [Primary Care Provider] - Follow up as needed
[2020-10-10] MEDS: ACETAMINOPHEN 325 MG TABLET PO ONE ×2 (19:59→20:01)
--- NOTE | 2020-10-10 20:49 | RADIOLOGY REPORT (SQ) ---
EXAM DESCRIPTION: XR CHEST 1 VIEW COMPLETED DATE/TME: 10/10/2020 20:32 CLINICAL HISTORY: 29 years, Female, fever, cough Comparison: None FINDINGS: No focal lung consolidation. No pleural effusion. No pneumothorax. Cardiac and mediastinal silhouette is unremarkable. No acute osseous abnormality. Soft tissues are unremarkable. IMPRESSION: No acute findings. No focal lung consolidation.
[2020-10-10 21:15] LABS: ABSOLUTE LYMPHOCYTES (AUTO) 1.2 10^3/uL (0.5-4.7); ABSOLUTE MONOCYTES (AUTO) 0.6 10^3/uL (0.1-1.4); BASOPHILS % (AUTO) 0.3 % (0-2); EOSINOPHILS % (AUTO) 0.1 % (0-6); HEMOGLOBIN 11.9 g/dL (12.0-15.5); LYMPHOCYTES % (AUTO) 10.9 % (13-45); MEAN CORPUSCULAR HEMOGLOBIN 30.1 pg (27.0-33.4); MEAN CORPUSCULAR VOLUME 86 fl (80-97); MONOCYTES % (AUTO) 5.8 % (3-13); PLATELET COUNT 330 10^3/uL (150-450); RED BLOOD COUNT 3.95 10^6/uL (3.72-5.28); RED CELL DISTRIBUTION WIDTH 13.3 % (11.5-14.0); SEGMENTED NEUTROPHILS % (AUTO) 82.9 % (42-78); TOTAL CELLS COUNTED % (AUTO) 100 %; WHITE BLOOD COUNT 10.9 10^3/uL (4.0-10.5)
[2020-10-10 21:16] LABS: VENOUS BLOOD BASE EXCESS -0.7 mmol/L; VENOUS BLOOD HCO3 24.1 mmol/L (20-32); VENOUS BLOOD PCO2 40.3 mmHg (35-63); VENOUS BLOOD PH 7.4 (7.30-7.42)
[2020-10-10 21:26] LABS: APPEARANCE,URINE CLEAR; BILIRUBIN,URINE NEGATIVE (NEGATIVE); COLOR,URINE YELLOW; GLUCOSE, URINE NEGATIVE (NEGATIVE); KETONES,URINE NEGATIVE (NEGATIVE); PROTEIN,URINE NEGATIVE (NEGATIVE)
[2020-10-10 21:44] LABS: ALKALINE PHOSPHATASE 70 U/L (38-126); ANION GAP 11 (5-19); ASPARTATE AMINO TRANSFERASE 20 U/L (14-36); BILIRUBIN,DIRECT 0.3 mg/dL (0.0-0.4); BILIRUBIN,TOTAL 0.6 mg/dL (0.2-1.3); BLOOD UREA NITROGEN 8 mg/dL (7-20); CALCIUM 8.7 mg/dL (8.4-10.2); CARBON DIOXIDE 25 mmol/L (22-30); CHLORIDE 99 mmol/L (98-107); GLUCOSE 91 mg/dL (75-110); POTASSIUM 3.8 mmol/L (3.6-5.0); TOTAL PROTEIN 6.9 g/dL (6.3-8.2)
[2020-10-10 22:48] LABS: INTERNATIONAL RATION (INR) 1.18; PROTHROMBIN TIME 15.2 SEC (11.4-15.4)
[2020-10-11] MEDS ORDERED: IBUPROFEN 600 MG TABLET PO ONE (02:32)
[2020-10-11] MEDS ORDERED: ACETAMINOPHEN 325 MG TABLET PO ONE (03:21)
--- NOTE | 2020-10-11 03:54 | ER Document Report ---
ED General - General Chief Complaint: Fever Stated Complaint: FEVER CHILLS HEADACHE Time Seen by Provider: 10/10/20 19:44 Primary Care Provider: WM DANGELO MD [Primary Care Provider] - Follow up as needed TRAVEL OUTSIDE OF THE [place] IN LAST 30 DAYS: No - HPI Context: Chief Complaint: [Fever chills and headache] [This is a 29-year-old female presenting to the emergency department complaining of fever, chills and headache along with cough and shortness of breath for the past 5 days. Patient denies nausea, vomiting, neck pain, photophobia, known exposure to Covid positive persons or persons under investigation for COVID-19. Patient denies loss of sense of smell or loss of sense of taste. Patient admits she does smoke cigarettes. ] History obtained from [patient] Symptoms began:[6 days ago] Onset: [Gradual] Timing: [Gradual] Quality: [Achy] Intensity: [4] Location: [Head] Radiation: [Patient denies] [The pain does not migrate to a new location.] Aggravating factors: Exertion Relieving factors: Motrin and Tylenol Positive SOB [Denies] nausea [Denies] vomiting Positive sweats Positive fever Positive cough [Denies] calf or leg swelling or pain - Related Data Allergies/Adverse Reactions: No Known Allergies Allergy (Verified 01/25/18 07:18) Past Medical History - General Information source: Patient - Social History Smoking Status: Current Every Day Smoker Frequency of alcohol use: None Drug Abuse: None Family History: Reviewed & Not Pertinent Renal/ Medical History: Denies: Hx Peritoneal Dialysis - Immunizations Hx Diphtheria, Pertussis, Tetanus Vaccination: No - >5 yrs Review of Systems - Review of Systems Notes: Review of systems as below unless otherwise stated in HPI. CONSTITUTIONAL Positive fever, positive chills. EYES [No] eye pain., No photophobia ENT Positive URI symptoms, [No] sore throat, [No] ear pain. CARDIOVASCULAR [No] chest pain, [No] palpitations, [No] edema. RESPIRATORY Positive cough, positive SOB, [No] wheezing. GASTROINTESTINAL [No] abdominal pain, [No] nausea, [No] Diarrhea, [No] Vomiting, [No] constipation, [No] melena, [No] rectal bleeding. GENITOURINARY [No] dysuria, [No] urinary frequency, [No] hematuria, [No] urinary urgency, [No] vaginal discharge, [No] vaginal bleeding. MUSCULOSKELETAL [No] Back pain. No neck pain SKIN [No] Rash. NEUROLOGIC Positive headache, [No] recent seizures, [No] paralysis,[No] parathesias. ENDOCRINE [No] polyuria. HEMO/LYMPATIC [No] easy brusing PSYCHIATRIC [No] depression. Physical Exam - Vital signs Vitals: Temp Pulse Resp BP Pulse Ox 102.9 F H 116 H 19 126/62 H 100 10/10/20 19:24 10/10/20 19:24 10/10/20 19:24 10/10/20 19:24 10/10/20 19:24 - Notes Notes: CONSTITUTIONAL [Vital signs reviewed, Patient appears comfortable, Alert and oriented X 3, Normal stature.] HEAD [Atraumatic, Normocephalic.] EYES [Eyes are normal to inspection, No discharge from eyes, Extraocular muscles intact, Sclera are normal, Conjunctiva are normal.] ENT [External ears normal to inspection, Nose examination normal, Mouth normal to inspection. There does not appear to be any tonsillar edema or exudate or uvular deviation in the posterior oropharynx] NECK [Normal ROM, No jugular venous distention, No meningeal signs, no meningismus] RESPIRATORY CHEST [Chest is nontender, Breath sounds normal, No respiratory distress.] CARDIOVASCULAR Tachycardia, no murmurs, Normal S1 S2, No rub, No gallop.] ABDOMEN [Abdomen is nontender, No pulsatile masses, No other masses, Bowel sounds normal, No distension, No peritoneal signs, No hernias.] BACK [There is no CVA Tenderness, There is no tenderness to palpation, Normal inspection.] UPPER EXTREMITY [Inspection normal, No cyanosis, No clubbing, No edema, LOWER EXTREMITY [Inspection normal, No cyanosis, No clubbing, No edema, No calf tenderness, NEURO [No focal motor deficits, No focal sensory deficits, Speech normal.] SKIN [Skin is warm, Skin is dry, Skin is normal color.] PSYCHIATRIC [Normal affect. ] Course - Re-evaluation Re-evalutation: 10/11/20 05:36 Results of ED MSE discussed with patient. All questions were answered prior to discharge. Emergency signs and symptoms, reasons to return to the emergency department discussed with patient. - Vital Signs Vital signs: Temp Pulse Resp BP Pulse Ox 98.5 F 75 18 109/56 L 99 10/11/20 04:46 10/11/20 04:46 10/11/20 04:46 10/11/20 04:46 10/11/20 04:46 - Laboratory Results Result Diagrams: 10/10/20 20:53 10/10/20 20:53 Laboratory Results Interpreted: 10/10/20 10/10/20 10/10/20 20:53 20:53 20:53 WBC 10.9 H Hgb 11.9 L Hct 34.0 L Lymph % (Auto) 10.9 L Absolute Neuts (auto) 9.0 H Seg Neutrophils % 82.9 H Sodium 134.9 L Urine Urobilinogen 2.0 H Leukocyte Esterase Rfl TRACE H Critical Laboratory Results Reviewed: No Critical Results Attending or Supervising Physician who Reviewed Labs: CONCEPCIÓN MCDONOUGH IV - Radiology Results Critical Radiology Results Reviewed: No Critical Results Attending or Supervising Physician who Reviewed Radiology: CONCEPCIÓN MCDONOUGH IV Discharge - Discharge Clinical Impression: Acute bacterial bronchitis Condition: Stable Disposition: HOME, SELF-CARE Additional Instructions: Return to the Emergency Department without delay if any worse. HOME CARE INSTRUCTIONS & INFORMATION: Thank you for choosing us for your medical needs. We hope you're satisfied with the care you received. After you leave, you must properly care for your problem and, at the same time, observe its progress. Any condition can change. Some illnesses can change rapidly over hours or days. If your condition worsens, return to the Emergency Department or see your physician promptly. ABOUT YOUR X-RAYS AND EKG'S: If you had an EKG or X-rays taken, they have been read by the Emergency Physician. The X-rays and EKG's will also be read by a Radiologist or Business Applications Developer within 24 hours. If discrepancies are noted, you will be notified by telephone. Please be certain the ED has a correct telephone number & address where you can be reached. Also, realize that some fractures or abnormalities do not show up on initial X-rays. If your symptoms continue, see your physician. ABOUT YOUR LABORATORY TEST: If you had laboratory tests, the results have been reviewed by the Emergency Physician. Some test results (for example cultures) may not be available for several days. You will be contacted if any test result shows you need additional treatment. Please be certain the ED has a correct telephone number and address where you can be reached. ABOUT YOUR MEDICATIONS: You will receive instructions on how to take your medicine on the prescription label you receive. Additional information may be provided by the Pharmacy. If you have questions afterwards, call the ED for clarification or further instructions. Some prescribed medications may cause drowsiness. Do not perform tasks such as driving a car or operating machinery without consulting your Pharmacist. If you feel you need a refill of pain medication, your condition will need re-evaluation. Please do not call for a refill of any medication. ABOUT YOUR SIGNATURE: Signature of this document acknowledges to followin. Understanding that you received emergency treatment and that you may be released before al medical problems are known or treated. Please be certain the ED has a correct phone number & address where you can be reached. 2. Acknowledgement that you will arrange for follow-up care as recommended. 3. Authorization for the Emergency Physician to provide information to your follow-up Physician in order to maximize your care. AT ANY TIME, IF YOUR SYMPTOMS CHANGE SIGNIFICANTLY OR WORSEN OR YOU DEVELOP NEW SYMPTOMS, RETURN TO THE EMERGENCY DEPARTMENT IMMEDIATELY FOR RE-EVALUATION. OUR GOAL IS TO PROVIDE EXCELLENT MEDICAL CARE! WE HOPE THAT WE HAVE MET YOUR EXPECTATIONS DURING YOUR EMERGENCY DEPARTMENT VISIT AND THAT YOU FEEL YOU HAVE RECEIVED EXCELLENT CARE! Bronchitis You have acute bronchitis. This disease is an infection or inflammation of the air passageways in your lungs. Symptoms usually include cough, low grade fever, shortness of breath, and wheezing. The cough usually persists for a couple of weeks. Most cases of bronchitis get better without antibiotics. We prescribe antibiotics when we believe bacteria are damaging your airways, or if there's high risk the bronchitis will worsen into pneumonia. Increase your fluid intake. A cool mist humidifier may make your lungs more comfortable. An expectorant (cough medicine that loosens phlegm) can help. If you smoke, STOP!!! Recovery from bronchitis can be somewhat slow, but you should see improvement within a day or two. Repeated episodes of bronchitis may result in lung damage -- for example, chronic bronchitis, recurrent pneumonias, or emphysema. Call the doctor if you develop increasing fever, shortness of breath, chest pain, bloody sputum, or otherwise worsen. If you have not improved at all after several days, contact the physician. Prescriptions: Prednisone [Deltasone 10 mg Tablet] 10 mg PO ASDIR PRN #21 tablet PRN Reason: Azithromycin [Zithromax 250 mg Tablet] 250 mg PO DAILY 4 Days #4 tablet Referrals: WM DANGELO MD [Primary Care Provider] - Follow up as needed
[2020-10-11] MEDS ORDERED: AZITHROMYCIN 250 MG TABLET PO ONE (05:47)
[2020-10-11] MEDS ORDERED: HYDROCODONE/ACETAMINOPHEN 5-325 MG (6 TAB/ER DISP) PO PRN (05:47)
[2020-10-11 06:18] VITALS: BP 108/61
--- NOTE | 2020-10-11 07:54 | EKG REPORT ---
SEVERITY:- BORDERLINE ECG - SINUS RHYTHM PROBABLE LEFT ATRIAL ABNORMALITY : Confirmed by: Dax Salgado MD 11-Oct-2020 07:53:25
== END 2020-10-11 06:25 | disposition home or self-care (01) ==
LOC: ER 18:50
DX: J20.8 Acute bronchitis due to other specified organisms (principal); B96.89 Other specified bacterial agents as the cause of diseases classified elsewhere; R50.9 Fever, unspecified; R51.9 Headache, unspecified; R05 Cough; R06.02 Shortness of breath; F17.210 Nicotine dependence, cigarettes, uncomplicated; Z20.822 Contact with and (suspected) exposure to COVID-19
CPT/HCPCS: 93005; 99285; 96360; 96361 ×2; 36415; 87040; 83605; 84703; 85025; 85610; 0241U ×4; 80053; 81001; 82803; 71045; 93010; J7120; C9803